=== PATIENT | male | born 1975 | race Caucasian/White ===

== ENCOUNTER 2021-01-06 05:29 | Outpatient (RCR) | payer OTHER | END 2021-01-06 09:00 | disposition home or self-care (01) | LOC: PREOP 05:29 | PROVIDERS: ATTEND Surgery | DX: Z01.812 Encounter for preprocedural laboratory examination (principal); Z20.822 Contact with and (suspected) exposure to COVID-19 | CPT/HCPCS: 87635 ==

== ENCOUNTER 2021-01-09 07:33 | Day surgery (SDC) | payer OTHER ==
[~2021-01-09] VITALS: Ht 170.2 cm; Wt 84.4 kg
[2021-01-09] MEDS ORDERED: LACTATED RINGERS 1,000 ML IV STA (07:38)
[2021-01-09] MEDS ORDERED: HURRICAINE EXT TUBE (BENZOCAINE) XX PRN (07:45)
[2021-01-09 07:56] VITALS: BP 124/62
[2021-01-09] MEDS ORDERED: proPOfol 200 MG/20 ML (DIPRIVAN) VIAL IV ONE (07:58)
[2021-01-09] MEDS ORDERED: MIDAZOLAM 2 MG/2 ML (VERSED) VIAL ONE (07:58)
[2021-01-09 08:50] VITALS: BP 118/78
--- NOTE | 2021-01-09 08:53 | Progress Note-Post Operative ---
Post-Operative Progess Note Surgeon (s)/Roving Department Supervisor (s) Surgeon GABRIELLA LEARY DO Roving Department Supervisor: none Pre-Operative Diagnosis Dysphagia Post-Operative Diagnosis Gastritis Esophagitis Hiatal Hernia Procedure & Operative Findings Date of Procedure 01/09/21 Procedure Performed/Findings EGD with bx PROCEDURE NOTE: After informed consent was obtained, the patient was brought to the endoscopy suite, placed in bed in left lateral decubitus position. He was administered IV sedation by the MEDICAL AIDES TEACHER who then monitored vitals the entire time, heart rate, blood pressure and pulse ox and the scope was inserted down the mouth through the esophagus into the stomach. On the way down, noted some mild esophagitis, took a picture, pushed into the stomach, pushed past the antrum into the duodenum. Duodenum looked good. Pulled back and did a biopsy of antrum noted some mild gastritis. Then retroflexed the scope, saw a small hiatal hernia and took a picture of this. Then pulled the scope into the GE junction, took another picture of the hiatal hernia and then did a biopsy of the GE junction. Pushed the scope back into the stomach, suctioned all the air out of the stomach. At this point pulled the scope up the esophagus and out the mouth. The patient tolerated the procedure, and he recovered in endoscopy suite. Anesthesia Type IV sedation by MEDICAL AIDES TEACHER Estimated Blood Loss Estimated blood loss (mL): scant Specimens/Packing Specimens Removed antral bx GE jxn bx GABRIELLA LEARY DO Jan 09, 2021 08:53
--- NOTE | 2021-01-09 08:54 | Endoscopy Discharge Instruct ---
Endo Procedure/Findings Findings 1.: Gastritis 2.: Hiatal Hernia 3.: Other Findings (esophagitis) Discharge Instructions - Activity: You might feel a little sleepy until tomorrow. This is due to the medicine you received to relax you. Until tomorrow, you should: NOT drive a car, operate machinery or power tools. NOT drink any alcoholic beverages. NOT make any important decisions or sign importortant papers. Do not return to work until tomorrow, unless otherwise instructed. Resume previous activities tomorrow. Diet: Start by taking liquids. If you tolerate liquids, advance to solid food. 1.: EGD in 3 years Notify Physician - If you experience excessive bleeding, unusual abdominal pain, fever, or chest pain, contact your doctor immediately. GABRIELLA LEARY DO Jan 09, 2021 08:54
[2021-01-09 08:55] VITALS: BP 112/70
[2021-01-09 09:00] VITALS: BP 121/70
[2021-01-09 09:15] VITALS: BP 108/82
[2021-01-09 09:21] VITALS: BP 108/82
--- NOTE | 2021-01-10 11:44 | Anesthesia-General Post-Op ---
MAC Patient Condition Mental Status/LOC: Same as Preop Cardiovascular: Satisfactory Nausea/Vomiting: Absent Respiratory: Satisfactory Pain: Controlled Complications: Absent Post Op Complications Complications None Follow Up Care/Instructions Patient Instructions None needed. Anesthesiology Discharge Order Discharge Order Patient is doing well, no complaints, stable vital signs, no apparent adverse anesthesia problems. No complications reported per nursing. MARIANNE JOY HOME THEATER EXPERT Jan 10, 2021 11:44
== END 2021-01-09 09:23 | disposition home or self-care (01) ==
LOC: ENDO 07:33
PROVIDERS: ATTEND Surgery
DX: K29.50 Unspecified chronic gastritis without bleeding (principal); K31.A0 Gastric intestinal metaplasia, unspecified; K21.00 Gastro-esophageal reflux disease with esophagitis, without bleeding; K44.9 Diaphragmatic hernia without obstruction or gangrene